=== PATIENT | female | born 1980 | race Caucasian/White ===

== ENCOUNTER 2019-05-28 21:04 | Emergency (ER) | payer SELFPAY ==
--- NOTE | 2019-05-28 21:56 | EDM.PDOC ---
ED HPI GENERAL MEDICAL PROBLEM - General Chief Complaint: Lower Extremity Injury/Pain Stated Complaint: LEFT ANKLE PAIN/SWELLING Time Seen by Provider: 05/28/19 21:40 Source of Information: Reports: Patient, RN History Limitations: Reports: Other (limited old records) - History of Present Illness INITIAL COMMENTS - FREE TEXT/NARRATIVE: 38 yo female here with redness to the L lateral ankle area that is getting worse over the past couple of days. Recalls nicking herself shaving a couple days before the redness began. No fever or chills. Is not diabetic. 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) (none) left ankle Pain Score (Numeric/FACES): 3 - Related Data Allergies Allergy/AdvReac Type Severity Reaction Status Date / Time No Known Allergies Allergy Verified 05/28/19 21:31 Home Meds: Home Meds NK [No Known Home Meds] 05/28/19 [History] Past Medical History HEENT History: Reports: Impaired Vision Respiratory History: Reports: Asthma Gastrointestinal History: Reports: Other (See Below) Other Gastrointestinal History: Ulcers Genitourinary History: Reports: Pyelonephritis 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: Musculoskeletal History: Reports: Back Pain, Chronic, Fracture Neurological History: Reports: Headaches, Chronic, Other (See Below) Other Neuro History: 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 - Infectious Disease History Infectious Disease History: Reports: Chicken Pox, Shingles - Past Surgical History HEENT Surgical History: Reports: Adenoidectomy Social & Family History - Tobacco Use Smoking Status *Q: Current Every Day Smoker Years of Tobacco use: 8 Packs/Tins Daily: 0.2 Used Tobacco, but Quit: No - Caffeine Use Caffeine Use: Reports: Soda - Recreational Drug Use Recreational Drug Use: Yes Review of Systems - Review of Systems Review Of Systems: See Below Constitutional: Reports: No Symptoms Skin: Reports: Erythema, Wound (small superficial scabbed over cut behind the L lateral malleolus) Neurological: Reports: No Symptoms ED EXAM, GENERAL - Physical Exam Exam: See Below Exam Limited By: No Limitations General Appearance: Alert, WD/WN, No Apparent Distress Extremities: No Pedal Edema, Increased Warmth (L lateral ankle), Redness (L lateral ankle area. ). No: Pedal Edema Neurological: Alert, Oriented, CN II-XII Intact, Normal Cognition, No Motor/ Sensory Deficits Psychiatric: Normal Affect, Normal Mood Skin Exam: Warm, Dry, No Rash, Erythema, Increased Warmth (lateral left ankle area. ), Wound/Incision (small scabbed over cut in area noted.) Course - Vital Signs Last Recorded V/S: Last Vital Signs Temp 36.1 C 05/28/19 21:34 Pulse 103 H 05/28/19 21:34 Resp 16 05/28/19 21:34 BP 163/103 H 05/28/19 21:34 Pulse Ox 98 05/28/19 21:34 Departure - Departure Time of Disposition: 22:00 Disposition: Home, Self-Care 01 Condition: Fair Clinical Impression: Cellulitis of left ankle - Discharge Information *PRESCRIPTION DRUG MONITORING PROGRAM REVIEWED*: Not Applicable *COPY OF PRESCRIPTION DRUG MONITORING REPORT IN PATIENT MARTHA: Not Applicable Instructions: Cellulitis, Adult, [id number] Referrals: PCP,None [Primary Care Provider] - Additional Instructions: Take cephalexin and doxycycline as directed. Warm soaks to area several times daily. Elevate when possible. Recheck in the clinic on Saturday. Sepsis Event Note - Evaluation Sepsis Screening Result: No Definite Risk - Focused Exam Vital Signs: Vital Signs Temp Pulse Resp BP Pulse Ox 05/28/19 21:34 36.1 C 103 H 16 163/103 H 98 05/28/19 21:18 36.1 C 103 H 16 163/103 H 98 Date Exam was Performed: 05/28/19 Time Exam was Performed: 21:51
== END 2019-05-28 22:04 | disposition home or self-care (01) ==
LOC: JP.ED 21:04
CPT/HCPCS: 99283